=== PATIENT | female | born 1995 | race Caucasian/White ===

== ENCOUNTER 2018-07-10 14:33 | Emergency (ER) | payer OTHER ==
[~2018-07-10] VITALS: Ht 157.5 cm; Wt 70.9 kg
[2018-07-10] MEDS ORDERED: DEXAMETHASONE SOD PHOS 4 MG/ML 5 ML VIAL IM ONE (15:30)
[2018-07-10] MEDS ORDERED: DiphenhydrAMINE HCL 25 MG CAPSULE PO ONE (15:30)
[2018-07-10] MEDS ORDERED: FAMOTIDINE 20 MG TABLET PO ONE (15:30)
[2018-07-10 17:14] VITALS: BP 122/67
== END 2018-07-10 17:17 | disposition home or self-care (01) ==
LOC: EMS 14:33
DX: L50.9 Urticaria, unspecified (principal)
CPT/HCPCS: 96372; 99283; J1100